=== PATIENT | female | born 1940 | race Caucasian/White ===

== ENCOUNTER → 2018-05-12 | Outpatient (CLI) | payer MEDICARE, BC ==
--- NOTE | 2018-05-14 07:46 | Diagnostic Imaging Report ---
PROCEDURE:X-RAY MODIFIED BARIUM SWALLOW COMPARISON:None. INDICATIONS:Dysphasia with dysarthria DISCUSSION:Fluoroscopic examination was performed in conjunction with speech pathology, during swallowing of a variety of thin and thick liquid consistencies. There is laryngeal penetration into the vestibule with thin liquids and juice portion of mixed mechanical soft substance. Silent and overt trace-ashutosh aspiration of thin liquids via cup and straw during swallowing is present. Silent trace aspiration of juice portion of mixed mechanical soft during swallowing. Fluoroscopy time: 1.6 minutes Total dose: 10.0 mGy CONCLUSION:Laryngeal penetration with aspiration. Please see the report from speech pathology for complete details. Cuauhtemoc Blair D.O. Dictated by: Cuauhtemoc Blair D.O. on 05/14/2018 at 7:45 Electronically approved by: Cuauhtemoc Blair D.O. on 05/14/2018 at 7:45
== END ==
LOC: DX 11:23
PROVIDERS: ATTEND Otolaryngology
DX: R13.13 Dysphagia, pharyngeal phase (principal)
CPT/HCPCS: 74230

== ENCOUNTER 2018-06-15 13:00 | Outpatient (RCR) | payer MEDICARE, BC ==
--- NOTE | 2018-05-25 15:00 | NUR ---
Clinical Swallow Evaluation/Initial Treatment Session Patient is a 78 year old female with diagnosis of dysphagia and dysarthria. Pt participated in a modified barium swallow study on 05/12/18. Pt presented with mild to moderate pharyngeal dysphagia c/b consistent premature spillage over the base of tongue, SILENT and overt aspiration of thin liquids and juice portion of mixed mech soft, and consistent pharyngeal residue after the swallow. Dysphagia was judged to be secondary to decreased coordination of the swallow, decreased pharyngeal constriction, and decreased hyolaryngeal excursion. Recommendation was made for dysphagia therapy to increase strength and coordination of swallow. Patient was seen today in the outpatient clinic for initial treatment of Neuromuscular Electrical Stimulation (NMES) with VitalStim Therapy and traditional dysphagia therapy with pharyngeal exercises. Pt was seen with no family present. Oral motor exam revealed function that was grossly within normal limits. Patient tolerated room air. Hearing appeared to be WFL. Patient reported no change in her swallow skills since the modified barium swallow study. Pt confirmed that she continues to choke and cough during meal times. Provided extensive education re: need for therapy, purpose of exercises and NMES, and future plan of care. Pt indicated understanding. Pt was given water and hard candy. Pt was instructed to take small bites/sips and swallow hard, feeling all the muscles in her throat contract. Placement 3b was used to target the mylohyoid muscle, the anterior belly of the digastric muscle, the sternohyoid muscle, the omohyoid muscle, the geniohyoid muscle, and the middle pharyngeal constrictors. Channel 1 of the electrodes was aligned horizontally just above the hyoid bone and channel 2 of the electrodes was aligned horizontally at the level of the thyroid notch. This placement was used to improve base of tongue strength, pharyngeal constriction, and UES function. Pt initially tolerated 5.0 mA, but as the session progressed pt tolerated 9.5 mA. Pt received 40 minutes of stimulation. Cough noted X 1, throat clear X 1. During NMES an exercise program was presented, demonstrated, and discussed. Pt completed the exercises with minimal assistance. A home program was assigned. Pt verbalized understanding of the home exercise program. Education provided as indicated. All questions were answered. Impressions: Pt tolerated initial session of NMES well. She continues to report and demonstrate s/s of aspiration during meals which significantly interferes with her quality of life. Pt is an excellent candidate for dysphagia exercises and NMES for improvement of strength and coordination of swallow. Recommendations: 1.Dysphagia therapy to include traditional exercises and NMES 3X/week for 4 weeks for a total of 12 treatment sessions 2.Home exercise program 3.Repeat MBS in 4 weeks with new goals to be determined at that time. Nursing Home Goal: Pt will tolerate least restrictive diet without s/s of aspiration as judged by an objective evaluation. Short Term Goals: 1.Pt will complete 3 repetitions of a set of dysphagia exercises to improve laryngeal elevation, base of tongue retraction, and laryngeal closure, 10 repetitions per exercise, with minimal cues. 2.Pt will tolerate NMES for 45 60 minutes with no clinical s/s of aspiration to improve strength of pharyngeal constrictors, hyolaryngeal excursion, and safety with po intake. 3.Pt will complete home dysphagia exercise program targeting laryngeal elevation, base of tongue strength, and cricopharyngeal function independently. 4.Pt will follow aspiration precautions with independence. 5.Pt will participate in a repeat Modified Barium Swallow study to objectively re-assess swallow safety and function and determine safest diet. Margot Fonseca M.A. CCC-MULTIMEDIA ENGINEER Date of Session: 05/25/18 Dysphagia Evaluation X 60 minutes [facility] NOMS Rating for Swallowing: Level 6
--- NOTE | 2018-05-26 10:08 | NUR ---
ST NOTE: Pt called and cx her session today, CPOC with SLE and NMES to treat dysphagia next session
--- NOTE | 2018-06-01 09:27 | NUR ---
ST NOTE: Pt has appointment conflict today, actively seeking reschedule.
--- NOTE | 2018-06-04 09:34 | NUR ---
ST NOTE: Pt cx apt secondary to weather, next apt on Friday
== END 2018-06-16 ==
LOC: ST 13:00
PROVIDERS: ATTEND Otolaryngology
DX: R13.13 Dysphagia, pharyngeal phase (principal)
CPT/HCPCS: 92522

== ENCOUNTER 2018-07-07 10:00 | Outpatient (RCR) | payer MEDICARE, BC ==
--- NOTE | 2018-06-17 10:11 | NUR ---
ST NOTE: Pt cx due to vehicle difficulties. She will be present for Speech Therapy tomorrow at 10:00
--- NOTE | 2018-07-06 10:29 | NUR ---
ST NOTE: Pt phoned and was confused with therapy times, will be here tomorrow at 1000. Will attempt to reschedule missing visit
--- NOTE | 2018-07-07 12:36 | NUR ---
Clinical Swallow Re-Evaluation Patient is a 78 year old female with diagnosis of dysphagia and dysarthria. Pt participated in a modified barium swallow study on 05/12/18. Pt presented with mild to moderate pharyngeal dysphagia c/b consistent premature spillage over the base of tongue, SILENT and overt aspiration of thin liquids and juice portion of mixed mech soft, and consistent pharyngeal residue after the swallow. Dysphagia was judged to be secondary to decreased coordination of the swallow, decreased pharyngeal constriction, and decreased hyolaryngeal excursion. Recommendation was made for dysphagia therapy to increase strength and coordination of swallow. Patient has attended 10 therapy sessions with of Neuromuscular Electrical Stimulation (NMES) with VitalStim Therapy and traditional dysphagia therapy with pharyngeal exercises. Short term goals and progress follow: 1.Pt will complete 3 repetitions of a set of dysphagia exercises to improve laryngeal elevation, base of tongue retraction, and laryngeal closure, 10 repetitions per exercise, with minimal cuespt completed exercises with minimal cues. 2.Pt will tolerate NMES for 45 60 minutes with no clinical s/s of aspiration to improve strength of pharyngeal constrictors, hyolaryngeal excursion, and safety with po intakept tolerated 60 minutes of NMES with thin liquid at a max of 16.5 mA. Placement 3b was used to target the mylohyoid muscle, the anterior belly of the digastric muscle, the sternohyoid muscle, the omohyoid muscle, the geniohyoid muscle, and the middle pharyngeal constrictors. Channel 1 of the electrodes was aligned horizontally just above the hyoid bone and channel 2 of the electrodes was aligned horizontally at the level of the thyroid notch. This placement was used to improve base of tongue strength, pharyngeal constriction, and UES function. Cough noted X 1, throat clear X 1. 3.Pt will complete home dysphagia exercise program targeting laryngeal elevation, base of tongue strength, and cricopharyngeal function independentlypt reported completion of home exercise program daily. 4.Pt will follow aspiration precautions with independencept reported following aspiration precautions with cues. 5.Pt will participate in a repeat Modified Barium Swallow study to objectively re-assess swallow safety and function and determine safest dietscheduled 07/10/18. Impressions: Pt tolerates treatment well and reports less coughing and choking with meals. However, she continues to report and demonstrate occasional s/s of aspiration during meals which significantly interferes with her quality of life. Continued treatment is recommended to complete the recommended 12 sessions of therapy. Recommendations: 1.Dysphagia therapy to include traditional exercises and NMES 2X/week for 1 week 2.Home exercise program 3.Repeat MBS in 1 week with new goals to be determined at that time Ivory Carver Goal: Pt will tolerate least restrictive diet without s/s of aspiration as judged by an objective evaluation. Short Term Goals: 1.Pt will complete 3 repetitions of a set of dysphagia exercises to improve laryngeal elevation, base of tongue retraction, and laryngeal closure, 10 repetitions per exercise, with minimal cues. 2.Pt will tolerate NMES for 45 60 minutes with no clinical s/s of aspiration to improve strength of pharyngeal constrictors, hyolaryngeal excursion, and safety with po intake. 3.Pt will complete home dysphagia exercise program targeting laryngeal elevation, base of tongue strength, and cricopharyngeal function independently. 4.Pt will follow aspiration precautions with independence. 5.Pt will participate in a repeat Modified Barium Swallow study to objectively re-assess swallow safety and function and determine safest diet. Margot Fonseca M.A. CCC-PHYSICAL THERAPIST AIDE Date of Session: 07/07/18 Dysphagia Evaluation X 64 minutes NOMS Rating for Swallowing: Level 5
== END 2018-07-17 ==
LOC: ST 10:00
PROVIDERS: ATTEND Otolaryngology
DX: R13.13 Dysphagia, pharyngeal phase (principal)

== ENCOUNTER → 2018-07-10 | Outpatient (CLI) | payer MEDICARE, BC | LOC: DX 13:11 | PROVIDERS: ATTEND Otolaryngology | DX: R13.13 Dysphagia, pharyngeal phase (principal); R47.1 Dysarthria and anarthria | CPT/HCPCS: 74230 ==